=== PATIENT | female | born 1985 | race Caucasian/White ===

== ENCOUNTER 2024-08-12 03:21 | Emergency (ER) | payer MEDICAID, SELFPAY ==
[2024-08-12 03:22] VITALS: BMI 42.0
[2024-08-12 03:25] VITALS: BP 138/97; PULSE 95; RESP 19; TEMP 36.4; O2SAT 97
--- NOTE | 2024-08-12 03:54 | XR_ITS ---
Examination: Shoulder,right, 3 views Technique: Shoulder AP internal rotation, AP external rotation, Y view shoulder, 3 views Exam date and time :August 12, 2024 0358 hours INDICATIONS: Right shoulder pain 4 days FINDINGS: Moderate to advanced osteoarthritis glenohumeral joint No fracture or dislocation IMPRESSION: Moderate to advanced osteoarthritis glenohumeral joint
--- NOTE | 2024-08-12 04:30 | PD.EDADULT ---
ED General RME/HPI General Chief complaint: Extremity Injury, Upper Stated complaint: R shoulder pain radiating to R hand Time Seen by Provider: 08/12/24 03:23 Arrival date/time: 08/12/24 03:21 38-year-old female presents to the ED with a complaint of right shoulder pain, ongoing for at least 1 month. She has been using [place] balm and Motrin but tonight was unable to sleep due to the pain. She denies any injury to the shoulder or recent neck injury/pain. She denies long hours at a computer with a mouse but states she was moving some heavy items approximately 6 weeks ago. She has not discussed this right shoulder and upper back pain with her primary care physician yet. Mode of arrival: ambulatory Limitations: no limitations Related Data Previous Rx's ?Medication ?Instructions ?Recorded acetaminophen 650 mg 650 mg PO Q8H PRN fever or pain 04/28/20 tablet,extended release #30 tabs ibuprofen 600 mg tablet 600 mg PO Q8H PRN fever or pain 04/28/20 #30 tabs hydroxyzine HCl 50 mg tablet 50 mg PO Q6H PRN anxiety #20 tabs 08/01/20 ibuprofen 800 mg tablet 800 mg PO TID PRN pain #30 tabs 02/19/21 prochlorperazine maleate 10 mg 10 mg PO BID PRN anxiety #14 tabs 11/12/23 tablet (Compazine) lidocaine 5 % topical patch 1 patch topical Q24H #15 ea 08/12/24 (Lidoderm) meloxicam 15 mg tablet 15 mg PO QDAY #10 tabs 08/12/24 Allergies Allergy/AdvReac Type Severity Reaction Status Date / Time erythromycin base Allergy Mild HIVES Verified 08/12/24 03:27 Review of Systems Review of Systems Systems Reviewed: All systems reviewed, normal except as documented Past Medical History Past Medical History NEUROLOGIC: Negative Neurological Disorders CARDIAC: Negative Cardiac Disorders RESPIRATORY: Negative Chronic Obstructive Pulmonary Disease (COPD) GASTROINTESTINAL: Negative Gastrointestinal Disorders GENITOURINARY: Negative Renal Disease MUSCULOSKELETAL: Negative Musculoskeletal Disorders ENDOCRINE: Positive Hypothyroidism; Negative Diabetes Mellitus Type 1 or Diabetes Mellitus Type 2 HEMATOLOGIC: Negative Blood Disorders PSYCHO/SOCIAL: Positive Anxiety OTHER HISTORY: Positive Hospitalization (CHILDBIRTH) and Chicken Pox; Negative Autoimmune Disease Family History FAMILY HISTORY: Positive Family Respiratory Disorders (MATERNAL GM-COPD), Family Cardiac Disorders (MATERNAL GM-PACEMAKER), Family Cancer (FATHER-PROSTATE CA.) and Family Surgery (MOTHER-BACK SURGERY, KIDNEY, FATHER- KNEE AND SHOULDER SURGERY, PROSTATE) Surgical History SURGICAL: Positive Tonsillectomy and Section Social History SMOKING STATUS: Never smoker SUBSTANCE USE: does not use ED Exam Narrative Physical exam: 38-year-old female, mild to moderate acute distress due to right shoulder discomfort. Lungs are clear, regular rate and rhythm without murmurs. Severe Right trapezius muscle tenderness as well as paraspinal tenderness of the cervical and thoracic spine. Limited range of motion of the right upper extremity secondary to pain. Weak right assembler liquid center strength secondary to pain. Decreased sensory of the right upper extremity noted. General Limitations: Present no limitations Course Course Course Narrative: XR shoulder reveals: Moderate to advanced osteoarthritis glenohumeral joint. No fracture or dislocation Patient was placed in a arm sling. Patient was given Toradol 30 mg IM. Quality Measures none Orders Category Date Time Status sling [Splint / Immobilizer] STAT Care 08/12/24 06:11 Completed XR shoulder RT min 2V Stat Exams 08/12/24 03:54 Completed Ketorolac Inj [Toradol Inj] Med 08/12/24 03:54 Discontinued 30 mg IM X1 ONE Vital Signs Vital signs: Vital Signs Temperature 97.5 F 08/12/24 03:25 Pulse Rate 95 08/12/24 03:25 Respiratory Rate 19 08/12/24 03:25 Blood Pressure 138/97 H 08/12/24 03:25 Pulse Oximetry (%) 97 08/12/24 03:25 Oxygen Delivery Method Room Air 08/12/24 03:25 Discharge Plan Plan Patient Disposition: HOME (Self Care) Discharge Disposition comment: Stable Prescriptions/Referrals Prescriptions/Med Rec: New meloxicam 15 mg tablet 15 mg PO QDAY Qty: 10 0RF lidocaine [Lidoderm] 5 % adhesive patch,medicated 1 patch topical Q24H Qty: 15 0RF Rx Instructions: leave on most painful area for up to 12 hrs, then remove x12 hrs. No Action acetaminophen 650 mg tablet extended release 650 mg PO Q8H PRN (Reason: fever or pain) Qty: 30 0RF Rx Instructions: swallow whole; do not chew/break/dissolve/open ibuprofen 600 mg tablet 600 mg PO Q8H PRN (Reason: fever or pain) Qty: 30 0RF hydroxyzine HCl 50 mg tablet 50 mg PO Q6H PRN (Reason: anxiety) Qty: 20 0RF ibuprofen 800 mg tablet 800 mg PO TID PRN (Reason: pain) Qty: 30 0RF prochlorperazine maleate [Compazine] 10 mg tablet 10 mg PO BID PRN (Reason: anxiety) Qty: 14 0RF Referrals: Maurisio Smith PA-C [Primary Care Provider] - In 1 week Problem List Clinical Impression: Cervical myofascial pain syndrome Patient/Caregiver Discharge Instructions Education Materials: ED Myofascial Pain Syndrome Additional Instructions: Follow-up with your primary care physician in 24 to 48 hours. You will likely benefit from physical therapy. Request a referral from your doctor. Return to the ED for any new or worsening symptoms. Print Language: Ecu[place] Stand Alone Forms: [employer] Award Info., Patient Portal Info Letter LUIS/ADOLFO Supervising Physician LUIS/ADOLFO Supervising Physician: Dr Yuly COBURN Narrative MDM hospital course (for use when minimal MDM required): 38-year-old female presents to the ED with a complaint of right shoulder pain, ongoing for at least 1 month. She has been using [place] balm and Motrin but tonight was unable to sleep due to the pain. She denies any injury to the shoulder or recent neck injury/pain. She denies long hours at a computer with a mouse but states she was moving some heavy items approximately 6 weeks ago. She has not discussed this right shoulder and upper back pain with her primary care physician yet. 38-year-old female, mild to moderate acute distress due to right shoulder discomfort. Lungs are clear, regular rate and rhythm without murmurs. Severe Right trapezius muscle tenderness as well as paraspinal tenderness of the cervical and thoracic spine. Limited range of motion of the right upper extremity secondary to pain. Weak right assembler liquid center strength secondary to pain. Decreased sensory of the right upper extremity noted. XR shoulder reveals: Moderate to advanced osteoarthritis glenohumeral joint. No fracture or dislocation Patient was placed in a arm sling. Patient was given Toradol 30 mg IM. Clinical Information Provided by: patient Medical Records reviewed None Meds/Rx considered, not ordered None Labs/Rad/Tests considered, not ordered None Chronic Illness/Social Conditions which may negatively complicate care or outcome(s)-explain: None or not applicable EKG EKG not done Labs Labs: none Imaging Imaging interpretation: none or see narrative above Imaging Interpretation(s): As noted above Medication Administration(s) Medication Administration History Discontinued Medications Ketorolac Tromethamine (Ketorolac Inj 60 Mg/2 Ml Vial) 30 mg IM X1 ONE Stop: 08/12/24 03:55 Last Admin: 08/12/24 06:35 Dose: 30 mg Documented By: SE As noted above Diagnosis Differential Diagnosis ED Complaint MDM: Right shoulder osteoarthritis, AC separation, rotator cuff injury Diagnoses ruled out and/or further discussions: AC separation, rotator cuff injury
[2024-08-12] MEDS: KETOROLAC INJ 60 MG/2 ML VIAL 30 MG IM (06:35)
== END 2024-08-12 06:58 | disposition home or self-care (01) ==
PROVIDERS: Emergency Provider Emergency Medicine; PCP Family Medicine
DX: M79.18 Myalgia, other site (principal); M19.011 Primary osteoarthritis, right shoulder
CPT/HCPCS: 73030; 96372; 99283; J1885